=== PATIENT | female | born 1965 | race Caucasian/White ===

== ENCOUNTER 2019-03-19 06:19 | Inpatient (IN) ==
[2019-03-19 07:05] LABS: BASO# 0.03 X1000 (0.0-0.2); BASO% 0.3 % (0.0-0.8); EOS# 0.05 X1000 (0.0-0.7); EOS% 0.5 % (0.0-10.0); HEMOGLOBIN 15.7 g/dL (12.0-16.0); IMM GRAN# 0.05 X1000 (0.0-0.04); IMM GRAN% 0.5 % (0.0-0.5); LYMPH% 16.7 % (20.5-51.1); MCH 28.6 PG (27-31); MCHC 32.7 g/dL (33-37); MCV 87.4 FL (81-99); MONO# 1.13 X1000 (0.11-0.59); MONO% 10.5 % (1.7-9.3); MPV 9.9 FL (7.4-10.4); NEUT# 7.69 X1000 (1.4-6.5); NEUT% 71.5 % (42.2-75.2); PLT 226 X1000 (130-400); RBC 5.49 XMIL (4.2-5.4); RDW 13.5 % (11.5-14.5); WBC 10.75 X1000 (4.8-10.8)
[2019-03-19 07:26] LABS: AGAP 18; ALB/GLOB RATIO 1.6; ALBUMIN 4.7 g/dL (3.5-5.0); ALKALINE PHOSPHATASE 94 U/L (32-104); AMYLASE 37 U/L (20-200); BUN 7 mg/dL (8-22); CALCIUM 9.2 mg/dL (8.8-10.2); CHLORIDE 99 mmol/L (98-107); COSMO 281; CREATININE 0.6 mg/dL (0.5-0.9); ESTIMATED GFR > 60; GLUCOSE 156 mg/dL (70-104); GOT 112 U/L (10-30); GPT 134 U/L (10-36); LIPASE 26 U/L (13-60); SODIUM 140 mmol/L (136-145); TCO2 23 mmol/L (25-35); TOTAL BILIRUBIN 2.15 mg/dL (0.20-1.00); TOTAL PROTEIN 7.7 g/dL (6.3-8.3)
[2019-03-19] MEDS ORDERED: PHENERGAN IM ONE (07:41)
[2019-03-19] MEDS ORDERED: NS 1,000 ML IV ONE (07:41)
--- NOTE | 2019-03-19 07:46 | PROVIDER DOCUMENTATION ---
HPI-Abdominal Pain/GI Problem - General Chief Complaint: Nausea/Vomiting Stated Complaint: n/v Time Seen by Provider: 03/19/19 07:09 Source: patient Allergies/Adverse Reactions: Patient Allergies Allergy/AdvReac Type Severity Reaction Status Date / Time Penicillins Allergy Severe ANAPHYLAXIS Verified 03/19/19 06:49 ondansetron HCl * Allergy Intermediate RASH Verified 03/19/19 06:49 [From Zofran (as hydrochloride)] Home Medications: Home Medication List Medication Instructions Recorded Confirmed Last Taken Type Omeprazole 40 mg PO DAILY 03/19/19 03/19/19 3 Days Ago History ~03/16/19 - History of Present Illness-ABD Nature of Presenting Problems: Presents to the with complaints of nausea, vomiting all weekend. She states that she is having some epigastric pain but denies any fevers or diarrhea. Denies any sick contacts. States that she has had pancretitis about 10 years ago and needed stents placed in GB ducts but has not had any issues since. She states this does not feel like her pancreatitis. She has not tried anything at home. She denies any blood in her vomit, but states it is bilious and clear liquid. Review of Systems - Adult - REVIEW OF SYSTEMS - ADULT Constitutional: reports: see HPI Eyes: reports: no symptoms reported Ears, Nose, Mouth & Throat: reports: no symptoms reported Cardiovascular: reports: no symptoms reported Respiratory: reports: no symptoms reported Gastrointestinal: reports: see HPI, abdominal pain, nausea, vomiting. denies: diarrhea Genitourinary: reports: no symptoms reported Musculoskeletal: reports: no symptoms reported Integumentary: reports: no symptoms reported Neurological: reports: no symptoms reported Psychiatric: reports: no symptoms reported Endocrine: reports: no symptoms reported Hematologic/Lymphatic: reports: no symptoms reported Allergic/Immunologic: reports: no symptoms reported All Other Systems: Reviewed and Negative Past History - Adult - PAST MEDICAL HISTORY-ADULT Review of Records: reports: Old Records Reviewed Major Childhood Illnesses: reports: denies history Cardiovascular: reports: denies history Respiratory: reports: denies history Gastrointestinal: reports: pancreatitis Obstetrical/Gynecological: reports: denies history Genitourinary: reports: denies history Musculoskeletal: reports: other (injury one week ago) Neurological: reports: headaches/migraines Psychiatric: reports: anxiety, depression (over loss of her in May) Endocrine/Immune: reports: denies history Other Conditions: reports: denies history - PRIOR SURGERIES/PROCEDURES Surgical/Procedure History: reports: appendectomy, cholecystectomy, joint replacement - IMMUNIZATION STATUS Childhood Immunizations: See Nurse Assessment Flu Vaccine: See Nurse Assessment - FAMILY HISTORY Family History: reviewed, not pertinent Physical Exam-General - PHYSICAL EXAM-ADULT Initial Vital Signs Reviewed: Yes - CONSTITUTIONAL General Appearance: alert, mild distress (uncomfortable appearing), anxious - HEAD, EARS, NOSE, MOUTH & THROAT HENMT: normocephalic/atraumatic - NECK Neck: supple, normal inspection - RESPIRATORY Respiratory: chest non-tender, lungs clear, normal breath sounds, no respiratory distress, no accessory muscle use - CARDIOVASCULAR Cardiovascular: normal peripheral pulses, regular rate, rhythm, no murmur - GASTROINTESTINAL (ABDOMEN) Abdominal Exam: normal bowel sounds, soft, tenderness (epigastric). negative: distended - MUSCULOSKELETAL Back Exam: normal inspection Extremity: normal range of motion, normal inspection - SKIN Integumentary: normal color, warm/dry - NEUROLOGIC Neurologic: grossly normal - PSYCHIATRIC Psych/Mental Status: normal mood/affect, oriented x 3 Progress - PLAN OF CARE/RESULTS Progress/Plan/Lab Results: Vital Signs - 8 hr 03/19/19 06:30 Temperature 98.7 F Pulse Rate 105 H Respiratory Rate 24 Blood Pressure 149/108 O2 Sat by Pulse Oximetry 99 Laboratory Results - last 24 hr 03/19/19 03/19/19 06:45 06:45 WBC 10.75 RBC 5.49 H Hgb 15.7 Hct 48.0 H MCV 87.4 MCH 28.6 MCHC 32.7 L RDW Std Deviation 13.5 Plt Count 226 MPV 9.9 Immature Gran % (Auto) 0.5 Neut % (Auto) 71.5 Lymph % (Auto) 16.7 L Kershaw % (Auto) 10.5 H Eos % (Auto) 0.5 Baso % (Auto) 0.3 Immature Gran # (Auto) 0.05 H Neut # (Auto) 7.69 H Lymph # (Auto) 1.80 Kershaw # (Auto) 1.13 H Eos # (Auto) 0.05 Baso # (Auto) 0.03 Sodium 140 Potassium 4.0 Chloride 99 Carbon Dioxide 23 L Anion Gap 18 BUN 7 L Creatinine 0.6 Estimated GFR/1.73 m2 > 60 BUN/Creatinine Ratio 12 Glucose 156 H Calculated Osmolality 281 Calcium 9.2 Total Bilirubin 2.15 H AST 112 H ALT 134 H Alkaline Phosphatase 94 Total Protein 7.7 Albumin 4.7 Globulin 3.0 Albumin/Globulin Ratio 1.6 Amylase 37 Lipase 26 Orders Category Date Time Status Saline Loc DIRECTED Care 03/19/19 06:58 Active NPO Diet 03/19/19 06:[address] ABD/PELVIS W/IV CONT ONLY [CT] Stat Exams 03/19/19 07:41 Ordered AMYLASE [CHEM] Stat Lab 03/19/19 06:45 Completed CBC WITH ELECTRONIC DIFF [HEME] Stat Lab 03/19/19 06:45 Completed COMPREHENSIVE METABOLIC PANEL [CHEM] Stat Lab 03/19/19 06:45 Completed LIPASE [CHEM] Stat Lab 03/19/19 06:45 Completed URINALYSIS W/POSS RFLX CULT [URINALYSIS] Stat Lab 03/19/19 06:58 Uncollected URINE DRUG SCREEN Stat Lab 03/19/19 07:41 Uncollected 0.9% Sodium Chloride Inj [Ns] 1,000 ml Med 03/19/19 07:41 Active IV 999 mls/hr Promethazine [Phenergan] Med 03/19/19 07:41 Discontinued 25 mg IM NOW ONE Patient with CT showing likely blocked stone in CBD. Will likely need ERCP. Spoke to RUBEN Ricardo weed control inspector for hospitlaist who accepted patient for admission on behalf of Dr Salas. Further orders to be placed by their team. Result Diagrams: 03/19/19 06:45 03/19/19 06:45 - CT/MRI 1 CT Study: Abdomen (CT ABD/PELVIS W/IV CONT ONLY - 03/19/2019 INDICATION: previous stents in GB, transaminitis, elev tbili COMPARISON: None FINDINGS: Aside from some trace atelectasis in the posterior right costophrenic angle, the lung bases are clear. Heart size is normal with no pericardial effusion. There is severe diffuse fatty change of the liver. There are cholecystectomy clips. There are some small densities in the distal common bile duct suggesting common bile duct stones. The common bile duct measures 10.8 mm in caliber. No intrahepatic biliary dilation. No liver masses. The pancreas and main pancreatic duct appear normal. The spleen, adrenals, and kidneys are normal. No bowel obstruction or inflammation. No constipation. Urinary bladder, uterus, and rectum are normal. There are moderate degenerative changes of the spine. No acute or suspicious bony lesion. IMPRESSION: 1. Severe hepatic steatosis. 2. Mild dilation of the common bile duct. Small stones in the distal common bile duct. There may be some obstruction here, however there is no intrahepatic biliary dilation. This exam was performed using automated exposure control, adjustment of mA or kV according to patient size, and/or use of iterative reconstruction technique Electronically signed by Orestes Nieto 03/19/2019 8:54 AM) - CONSULTS/PCP/HOSPITALIST Notification #1 *Consult/PCP/Hospitalist*: Haleigh Time Discussed: 09:41 Consult Disposition: Admit (accepted to Dr Salas) Departure - Departure Date of Disposition Decision: 03/19/19 Time of Disposition Decision: 09:40 DIAGNOSIS: Intractable nausea and vomiting, Choledocholithiasis Disposition: ADMITTED INPATIENT 09 Certified Medical Emergency: Emergent Condition: Stable Referrals and Follow-Ups: None,PCP [Primary Care Provider] - - Critical Care Note This patient required my direct & personal management of CC.: No Attestation - Physician/ SOBEIDA Attestation Patient care was provided by Advanced Practice Provider:: No The physician spent face to face time with patient:: Yes Advanced Practice Provider documentation review:: Supervising physician onsite and consulted in the evaluation and care of this patient. The physician did have a face to face encounter with the patient.
[2019-03-19 08:29] LABS: URINE SOURCE CLEAN CATCH
[2019-03-19 08:47] LABS: BILIRUBIN URINE SMALL (NEGATIVE); BLOOD URINE TRACE (NEGATIVE); COLOR ORANGE; GLUCOSE URINE TRACE mg/dL (NEGATIVE); KETONE URINE 20 mg/dL (NEGATIVE); LEUKOCYTES URINE SMALL (NEGATIVE); NITRITE URINE NEGATIVE (NEGATIVE); PROTEIN URINE 100 mg/dL (NEGATIVE); SP GRAVITY URINE 1.028; TURBIDITY URINE CLEAR (CLEAR); UR EPITHELIAL CELLS <10 /HPF (<10); URINE BACTERIA NEGATIVE /HPF; URINE RBC <10 /HPF (<10); URINE WBC <10 /HPF (<10); UROBILINOGEN URINE >12 mg/dL (NORMAL)
[2019-03-19 08:55] LABS: UR AMPHETAMINES MT NONE DETECTED (NONE DETECT); UR BARBITUATES MT NONE DETECTED (NONE DETECT); UR BENZODIAZ MT NONE DETECTED (NONE DETECT); UR CANNABIS MEDTOX NONE DETECTED (NONE DETECT); UR COCAINE MT NONE DETECTED (NONE DETECT); UR METHADONE MEDTOX NONE DETECTED (NONE DETECT); UR OPIATES MT NONE DETECTED (NONE DETECT); UR OXYCODONE MEDTOX NONE DETECTED (NONE DETECT); UR PCP MEDTOX NONE DETECTED (NONE DETECT)
--- NOTE | 2019-03-19 08:56 | Diag Imaging Result Doc PS360 ---
CT ABD/PELVIS W/IV CONT ONLY - 03/19/2019 INDICATION: previous stents in GB, transaminitis, elev tbili COMPARISON: None FINDINGS: Aside from some trace atelectasis in the posterior right costophrenic angle, the lung bases are clear. Heart size is normal with no pericardial effusion. There is severe diffuse fatty change of the liver. There are cholecystectomy clips. There are some small densities in the distal common bile duct suggesting common bile duct stones. The common bile duct measures 10.8 mm in caliber. No intrahepatic biliary dilation. No liver masses. The pancreas and main pancreatic duct appear normal. The spleen, adrenals, and kidneys are normal. No bowel obstruction or inflammation. No constipation. Urinary bladder, uterus, and rectum are normal. There are moderate degenerative changes of the spine. No acute or suspicious bony lesion. IMPRESSION: 1. Severe hepatic steatosis. 2. Mild dilation of the common bile duct. Small stones in the distal common bile duct. There may be some obstruction here, however there is no intrahepatic biliary dilation. This exam was performed using automated exposure control, adjustment of mA or kV according to patient size, and/or use of iterative reconstruction technique Electronically signed by Orestes Nieto 03/19/2019 8:54 AM
[2019-03-19 10:12] LABS: INR 0.99; PROTIME 13.2 Seconds (11.0-16.0)
--- NOTE | 2019-03-19 10:36 | HISTORY AND PHYSICAL ---
PRIMARY CARE PHYSICIAN: None. CHIEF COMPLAINT: Nausea, vomiting, and epigastric pain that began over the weekend and progressively worsened. HISTORY OF PRESENTING ILLNESS: This is a 53-year-old, female who presents to [facility] with complaints of epigastric abdominal pain, nausea, and vomiting. States the vomiting was too numerous to count over the weekend and has just progressively worsened. States she has had a history of pancreatitis in the past. Has also had a cholecystectomy and required some gallbladder duct stents about 10 years ago and has not had any problems with that since. Her workup in the emergency room showed a total bilirubin of 2.15, AST of 112, ALT 134. Amylase and lipase were both normal. Urinalysis was negative. Urine drug screen was negative. We did a CT of the abdomen and pelvis that showed severe hepatic steatosis and mild dilation of the common bile duct, small stones in the distal common bile duct, and there may be some obstruction here. However, there is no intrahepatic biliary dilation. She will be admitted for further evaluation and treatment. PAST MEDICAL HISTORY: Pancreatitis, migraines, depression, and psoriasis. PAST SURGICAL HISTORY: Stent placement to her common bile duct after her cholecystectomy approximately 10 years ago, an appendectomy, and a left ankle surgery. FAMILY HISTORY: Reviewed and noncontributory. SOCIAL HISTORY: She currently lives with family. She is a former smoker. Drinks alcohol occasionally and denied any illicit drug use. ALLERGIES: Penicillin and ondansetron. HOME MEDICATIONS: She takes omeprazole 40 mg p.o. daily and that will be held at this time. LABORATORY DATA: Showed a white blood cell count of 10.75, hemoglobin 15.7, hematocrit 48, and platelets 226,000. Sodium 140, potassium 4, chloride 99, CO2 of 23, BUN of 7, creatinine 0.6, glucose 156. Total bilirubin of 2.15, AST of 112, ALT 134, amylase of 37, lipase 26. Cardiac enzymes were negative. Urinalysis was negative. Urine drug screen was negative. CT of the abdomen and pelvis showed severe hepatic steatosis, mild dilation of the common bile duct, small stones in the distal common bile duct and there may be some obstruction here. However, there is no intrahepatic biliary dilation. REVIEW OF SYSTEMS: She denied any fever, chills, blurred vision, dizziness, chest pain, coughing, shortness of breath. She had epigastric abdominal pain, nausea, vomiting that was too numerous to count. Denied any constipation, diarrhea, or burning or hurting with urination. PHYSICAL EXAMINATION: VITAL SIGNS: On arrival, she had a temperature of 98.7 degrees, pulse 105, respirations 24, blood pressure 149/108. HEENT: Normocephalic, atraumatic. Normal ENT inspection. Oropharynx and nares are clear. Eyes: Pupils are equal, round, and reactive to light and accommodation. Extraocular movements are intact. NECK: Normal inspection. Normal range of motion. LUNGS: Clear to auscultation bilaterally with equal lung expansion and chest wall movement. HEART: Regular rate and rhythm. No murmurs, rubs, or gallops. ABDOMEN: Soft. There is some tenderness to palpation to the epigastric area. Bowel sounds were present x4 quadrants. MUSCULOSKELETAL: She had 5/5 strength x4 extremities. NEUROLOGICAL: The cranial nerves 2-12 appear grossly intact. ASSESSMENT: 1. Epigastric abdominal pain. 2. Nausea and vomiting. 3. Choledocholithiasis. 4. Elevated liver function tests. PLAN: She will be admitted to the medical unit. Placed on telemetry. Held n.p.o. We will consult GI. Recheck labs in the a.m. Place on morphine 2 mg IV q.3 hours p.r.n., normal saline at 125 mL an hour, Protonix 40 mg IV q.24, Phenergan 25 mg IV q.6 hours p.r.n. for nausea and vomiting, and further orders after seen by attending and datastage consultant. Dictated by ALVARO Bonds for Zain Salas MD cc: ALVARO Bonds MD
[2019-03-19] MEDS: NS 1,000 ML IV SCH ×2 (10:40→18:38)
[2019-03-19] MEDS: MORPHINE IV PRN ×5 (10:41→22:36)
[2019-03-19] MEDS: PROTONIX IV SCH (10:45)
[2019-03-19] MEDS: PHENERGAN IV PRN ×2 (11:53→19:32)
[2019-03-19] MEDS: SODIUM CHLORIDE 0.9% INJ PRN (11:53)
--- NOTE | 2019-03-19 14:54 | GASTROENTEROLOGY CONSULTATION ---
DATE: 03/19/2019 PATIENT PROFILE: A 53-year-old female REASON FOR CONSULTATION: Common bile duct. HISTORY OF PRESENT ILLNESS: Ms. Lebron is a 53-year-old female who presented to the hospital with complaints of epigastric abdominal pain, nausea, vomiting which she says has been going on over the weekend and it has progressively worsened. She describe her emesis as yellowish green in color. Patient has denied any constipation or diarrhea, and mentioned that she has regular bowel movement. The patient does have a history of pancreatitis in the past and also had a cholecystectomy done. She said that about 10 years back they had put a gallbladder duct stent, and has not had any problems since then. Patient used to live in [place], she moved to [place] [address] of abdomen and pelvis on admission showed severe hepatic steatosis, mild dilation of the common bile duct, small stones in the distal common bile ducts. The patient also has a history of foot reconstruction, which was done in June and history of psoriasis where her skin is very flaky on hands, legs and elbows. Currently, patient has nausea, vomiting and epigastric pain radiating to the back. PAST MEDICAL HISTORY: Pancreatitis, migraine, depression, psoriasis on her legs, elbows and hands, and rheumatoid arthritis. PAST SURGICAL HISTORY: Cholecystectomy, appendectomy, left ankle surgery, foot reconstruction and stent placement for the common bile duct. FAMILY HISTORY: No significant GI malignancies. ALLERGIES: The patient is allergic to penicillin and Zofran. SOCIAL HISTORY: She is a and has 1 kid. Former smoker. Drinks alcohol occasionally, and denies any illicit drugs. HOME MEDICATIONS: Home medications are Prilosec 40 mg daily. REVIEW OF SYSTEMS: As per HPI. Otherwise, 12 point review of system is negative. PHYSICAL EXAMINATION: Vital Signs: Temperature 98.4 degrees, pulse 90, respirations 17, blood pressure 157/77, oxygen saturation 98% on room air. Her weight is 179 pounds. BMI is 29.8 kg/m2. General: She is alert, oriented x3. Answering questions appropriately and in no acute distress. HEENT: Pale conjunctivitis, no icterus. PERRL. Neck: Supple. Lungs: Clear to auscultation in the anterior diaz. Cardiovascular: Regular rate and rhythm. Abdomen: Distended, tender, soft. Active bowel sounds heard in all 4 quadrants. Extremities: No clubbing, no cyanosis. Edema in the left foot in the ankle area. Pedal pulses 2+ present bilaterally. Neurological: Alert, oriented x3. Nonfocal. Cranial nerves 2-12 grossly intact. LABS: WBCs are 10.75, RBC 5.49, hemoglobin 15.7, hematocrit 48.0, platelet count 226. PT 13.2, INR is 0.99. Sodium 140, potassium 4.0, chloride 99, carbon dioxide 23, anion gap 18. BUN 7, creatinine 0.6, glucose 156, calcium 9.2, total bilirubin 2.15. AST 112, ALT 134, alkaline phos 94, total albumin is 4.7, amylase is 37, lipase 26, and plasma lactate is 1.2. The patient's urinalysis has shown 100 of protein, trace of blood and small amount of bilirubin and small amount of leukocytes. The patient's abdomen and pelvis CT has shown severe hepatic steatosis, mild dilation of the common bile duct, small stones in the distal common bile duct. IMPRESSION: Common bile duct stones Nausea and Vomiting Epigastric pain History of Pancreatitis History of psoriasis PLAN: Ms. Lebron is a 53-year-old female with a history of pancreatitis GI has been consulted for her CBD. Dr. Ross will be doing an ERCP tomorrow. Patient is currently on antiemetic Phenergan for her nausea and vomiting. She is receiving IV fluids NS at 125 mL. Patient is on a GI Protonix 40 mg IV daily. Discussed the risks, benefits indication and alternatives of the ERCP procedure, patient verbalizes understanding of the plan of care. This plan was discussed with Dr. Valdez. Thank you for your consult. Please call us for any further questions or concerns. Dictated by ALVARO Montoya for Gideon Valdez MD cc: Gideon Valdez MD I have seen and examined the patient myself and I agree with the above plan of care. I have discussed the above with the patient and all questions were answered. I called and spoke to Dr Ross who will be performing ERCP tomorrow. Please call us with any further questions. [facility] PSYCHIATRIC CENTERShea
[2019-03-19] MEDS: LEVAQUIN 750 MG/D5W 750 MG/150 ML IVPB IV SCH (18:38)
--- NOTE | 2019-03-19 20:17 | HISTORY AND PHYSICAL ---
ADDENDUM: Ms. Lebron was seen this morning. She presented because of abdominal pain. Imaging studies have revealed a hepatic steatosis and mild dilation of the CBD, stone in the distal common bile duct. Ms. Lebron has been evaluated by GI and there is a plan for ERCP with stone removal tomorrow. We are going to prophylactically cover her with antibiotic until after the procedure to prevent any ascending cholangitis. ASSESSMENT: 1. Symptomatic choledocholithiasis. 2. Transaminitis, secondary to stones in the common bile duct. 3. Psoriasis. The patient has been advised to follow up with Dermatology. 4. Previous history of pancreatitis. Please refer to the details of the History and Physical which has been dictated in the chart by the RN NICU, and the plan has been discussed with her. cc: Zain Salas MD
[2019-03-20] MEDS: MORPHINE IV PRN ×7 (01:23→21:38)
[2019-03-20] MEDS: NS 1,000 ML IV SCH ×3 (06:30→18:42)
[2019-03-20 08:31] LABS: BASO# 0.02 X1000 (0.0-0.2); BASO% 0.3 % (0.0-0.8); EOS# 0.21 X1000 (0.0-0.7); EOS% 3.1 % (0.0-10.0); HEMATOCRIT 40.9 % (37.0-47.0); HEMOGLOBIN 12.9 g/dL (12.0-16.0); IMM GRAN# 0.05 X1000 (0.0-0.04); IMM GRAN% 0.7 % (0.0-0.5); LYMPH# 2.14 X1000 (1.2-3.4); MCHC 31.5 g/dL (33-37); MCV 91.9 FL (81-99); MONO# 0.85 X1000 (0.11-0.59); MONO% 12.7 % (1.7-9.3); MPV 9.9 FL (7.4-10.4); NEUT# 3.41 X1000 (1.4-6.5); NEUT% 51.2 % (42.2-75.2); PLT 155 X1000 (130-400); RBC 4.45 XMIL (4.2-5.4); RDW 13.7 % (11.5-14.5); WBC 6.68 X1000 (4.8-10.8)
[2019-03-20 08:51] LABS: AGAP 18; ALB/GLOB RATIO 1.7; ALKALINE PHOSPHATASE 73 U/L (32-104); BUN 6 mg/dL (8-22); CALCIUM 8.1 mg/dL (8.8-10.2); CHLORIDE 104 mmol/L (98-107); COSMO 280; CREATININE 0.5 mg/dL (0.5-0.9); ESTIMATED GFR > 60; GLUCOSE 110 mg/dL (70-104); GOT 72 U/L (10-30); GPT 84 U/L (10-36); POTASSIUM 3.4 mmol/L (3.5-5.1); SODIUM 141 mmol/L (136-145); TCO2 19 mmol/L (25-35); TOTAL BILIRUBIN 1.99 mg/dL (0.20-1.00); TOTAL PROTEIN 6.3 g/dL (6.3-8.3)
[2019-03-20] MEDS: SODIUM CHLORIDE 0.9% INJ SCH (10:49)
[2019-03-20] MEDS: SODIUM CHLORIDE 0.9% INJ PRN ×2 (10:49→17:45)
[2019-03-20] MEDS: PROTONIX IV SCH (10:49)
[2019-03-20] MEDS: PHENERGAN IV PRN ×2 (10:49→17:45)
[2019-03-20] MEDS ORDERED: DIPRIVAN 1% ONE (13:36)
[2019-03-20] MEDS ORDERED: VERSED ONE (13:38)
--- NOTE | 2019-03-20 14:06 | PROGRESS NOTE ---
DATE: 03/20/2019 SUBJECTIVE: She says her nausea is better. She is still uncomfortable in her abdomen. She had presented on 03/19/2019 with nausea, vomiting, and epigastric pain. Apparently, she has had her gallbladder removed 10 years ago, but this was reminiscent of how she felt back then when she had a biliary colic, I believe. A 53-year-old female from [place], presented with the epigastric abdominal pain, nausea, and vomiting. The vomiting was too numerous to count over the weekend. No blood in the emesis, but she did have a nosebleed. She said she was thrown so hard, she had nosebleed. She has a history of pancreatitis in the past about 10 years ago, required a cholecystectomy, and she had some gallbladder duct stents about 10 years ago, not had any problems. Her workup in the emergency room showed a total bilirubin of 2.15, AST was 112, ALT 134. Amylase and lipase were both normal. Urinalysis was normal. Urine drug screen was negative. CT of the abdomen and pelvis showed severe hepatic steatosis and mild dilatation of the common bile duct, small stones in the distal common bile duct, and there may have been some obstruction there. PAST MEDICAL HISTORY: Pancreatitis, migraines, depression, psoriasis. PAST SURGICAL HISTORY: She has had stent placed in her common bile duct, and cholecystectomy about 10 years ago, status post appendectomy and left ankle surgery. OBJECTIVE: General: She does feel better. She is sitting up in a chair. Nausea is much better, but she is still having epigastric pain. Vital Signs: Temperature 98.8 degrees, pulse 85, respirations 14, blood pressure 161/86. HEENT: Pupils are equal and round. Lungs: Clear in all lung diaz. Cardiovascular: Regular rhythm and rate without murmur or S3. Abdomen: Soft. Skin: Warm and dry. LABORATORY DATA: Review of her lab from yesterday, white count was 6680, hematocrit was 40, platelet count was 155,000. Sodium 141, potassium 3.4, chloride 104, BUN 6, creatinine 0.5. Urinalysis was negative, unremarkable, and urine drug screen was negative. ASSESSMENT AND PLAN: 1. Symptomatic choledocholithiasis. Gastroenterology is involved. 2. Transaminitis secondary to some stones in the common bile duct. 3. History of psoriasis. 4. History of pancreatitis in the past. It was gallbladder-related pancreatitis when she had a cholecystectomy 10 years ago. REVIEW OF ORDERS: She is on Levaquin 750 mg IV daily, getting normal saline at 125 mL an hour, Protonix 40 mg IV every 24 hours, getting morphine p.r.n. cc: Reece Tipton MD
--- NOTE | 2019-03-20 14:31 | ENDOSCOPY OPERATIVE NOTE ---
[facility] ENDOSCOPY OPERATIVE NOTE , ERCP PROCEDURE REPORT EXAM DATE: 03/20/2019 PATIENT NAME: Luli Lebron MR #: [id number] BIRTHDATE: 1965 ATTENDING: Iain Ross MD STATUS: inpatient BLUING OVEN TENDER: Janell Ospina and Elliott Florez INDICATIONS: The patient is a 53 yr old female here for an ERCP due to established bile duct stone(s ). PROCEDURE PERFORMED: ERCP with removal of calculus/calculi ERCP with stent placement MEDICATIONS: Per Anesthesia CONSENT: The patient understands the risks and benefits of the procedure and understands that these r isks include, but are not limited to: sedation, allergic reaction, infection, perforation and/or bleeding. Alternative means of evaluation and treatment include, among others: physical exam, x-rays, and/or surgical intervention. The patient elects to proceed with this endoscopic procedure. HISTORY AND PHYSICAL: 03/20/2019 DESCRIPTION OF PROCEDURE: During intra-op preparation period all mechanical and medical equipment was checked for proper function. Hand hygiene and appropriate measures for infection prevention was taken. After the risks, benefits and alternatives of the procedure were thoroughly explained, Informed was verified, confirmed and timeout was successfully executed by the treatment team. With the patient in left semi-prone position, medications were admini stered intravenously.The [id number] ([id number]) was passed from the mouth into the esophagus and further advanc ed from the esophagus into the stomach. From stomach scope was directed to the second portion of the duodenum. M ajor papilla was aligned with the duodenoscope. The scope position was confirmed fluoroscopically. Rest of the finding s/therapeutics are given below. The scope was then completely withdrawn from the patient and the procedure completed. Th e pulse, BP, and O2 saturation were monitored and documented by the physician and the nursing staff throughout the ent janes procedure. The patient was cared for as planned according to standard protocol. The patient was then discharged to [facility] in stable condition and with appropriate post procedure care. ERCP: A nurseryperson film prior to endoscope insertion appeared normal. The Major Papilla was located in t he second portion of the duodenum. There was evidence of prior sphincterotomy. There was bile seen draining from the papilla. Bile duct cannulation was attempted using the sphincterotome with guidewire. Cannulation of the bile duct was performed with ease. Deep cannulation was successfully achieved. The cholangiogram revealed a filling defect in the distal common bile duct. A stone extraction was attempted using a stone extraction balloon. The bile duct was swept several times. A single stone was removed from the bile duct. Sludge was removed from the bile duct. Multi ple stones were removed from the bile duct. Under endoscopic and fluoroscopic guidance, a 10Fr X 5cm plastic stent was placed in the bile duct. ADVERSE EVENT: There were no complications. IMPRESSIONS: Common bile duct stone(s) RECOMMENDATIONS: 1. Start Full liquid diet for 1 Day(s) 2. Repeat liver function test in 1 day(s) 3. Disposition 4. Resume current medications 5. Return to floor when standard parameters are met REPEAT EXAM: Return in 6 weeks for ERCP. Iain Ross MD eSigned: Iain Ross MD 03/20/2019 2:30 PM cc: Gideon Vladez MD PATIENT NAME: Luli Lebron MR#: [id number]
--- NOTE | 2019-03-20 15:22 | Diag Imaging Result Doc PS360 ---
EXAM: ERCP-BILIARY AND PANCREATIC 03/20/2019 HISTORY: biliary obstruction TECHNIQUE: ERCP four images 3.9 minutes, 67.6 mGy. COMMENT: A stent was apparently placed. The distal common bile duct is not distended or well opacified. The possibility of a stricture cannot be excluded. IMPRESSION: The possibility of a stricture in the distal common bile duct cannot be excluded. Electronically signed by Naveen New 03/20/2019 3:20 PM
[2019-03-20] MEDS: LEVAQUIN 750 MG/D5W 750 MG/150 ML IVPB IV SCH (18:33)
[2019-03-21] MEDS: MORPHINE IV PRN ×8 (00:50→23:53)
[2019-03-21] MEDS: PHENERGAN IV PRN ×2 (03:56→20:19)
[2019-03-21] MEDS: NS 1,000 ML IV SCH ×2 (04:03→16:39)
[2019-03-21] MEDS: SODIUM CHLORIDE 0.9% INJ SCH (09:25)
[2019-03-21] MEDS: PROTONIX IV SCH (09:25)
--- NOTE | 2019-03-21 13:35 | GASTROENTEROLOGY PROGRESS NOTE ---
DATE: 03/21/2019 SUBJECTIVE: Ms. Lebron is a 53-year-old, female sitting in the bed. She complained of abdominal pain after she eats. She has denied any nausea or vomiting. The patient mentioned that after having the soup yesterday in the evening, she had severe abdominal cramps. OBJECTIVE: Vital Signs: Temperature 98.1 degrees, pulse is 74, respirations 20, blood pressure 162/88, oxygen saturation 100%. Patient is on room air. Her weight is 179 pounds. BMI is 29.8 kg/m2. General: She is alert, oriented x3, and in no acute distress. HEENT: Pale conjunctivae. No icterus. PERRL. Neck: Supple. Lungs: Clear to auscultation in the anterior diaz. Cardiovascular: Regular rate and rhythm. Abdomen: Distended. Mildly tender. Active bowel sounds heard in all 4 quadrants. Extremities: No clubbing, no cyanosis. Edema in the left foot and the ankle area. The patient does have psoriasis. She has flaky skin on her elbows and on the lower extremities. Pedal pulses 2+ present bilaterally. Neurologic: She is alert, oriented x3. Labs: WBCs are 6.68, RBCs 4.45, hemoglobin 12.9, hematocrit 40.9, platelet count is 155,000. Sodium 141, potassium 3.4, chloride 104, carbon dioxide 19, anion gap 18, BUN 6, creatinine is 0.5, glucose is 110, calcium 8.1. Total bilirubin 1.99, AST of 72, ALT 84, alkaline phosphatase is 73, albumin 4.0. An ERCP x-ray showed the possibility of a stricture in the distal common bile duct which cannot be excluded. IMPRESSION AND PLAN: - Choledocholithiasis - Abnormal LFTs - N/V - History of pancreatitis PLAN: Ms. Lebron is a 53-year-old, female who presents with symptomatic choledocholithiasis s/p ERCP with stone removal and stent placement. The patient is now currently on a full liquid diet. The patient is currently on antiemetic Phenergan for nausea and vomiting. She is receiving IV fluids, normal saline at 125 mL. She is on GI prophylaxis, Protonix 40 mg daily. The patient is also on antibiotic, Levaquin. Patient has been c/o abdominal pain after she eats, We will continue to monitor the patient and follow the plan of care per PCP. This plan was discussed with Dr. Crocker. Please call us for any further questions or concerns. Dictated by ALVARO Montoya for Serge Crocker MD Physician Attestation I have seen and examined the patient. I have discussed and reviewed the note by Mary JOHN and agree with findings and plan as documented. GI following for choledocholithiasis s/p ERCP. She will need repeat ERCP in 6 weeks for stent removal. Advance diet as tolerated. Will follow with you. Trending LFTs. MTDD
--- NOTE | 2019-03-21 15:56 | PROGRESS NOTE ---
DATE: 03/21/2019 SUBJECTIVE: Ms. Lebron is feeling better, but she is still having a good deal of pain and she did have some more nausea so clearly still very uncomfortable. OBJECTIVE: Vital Signs: Remains afebrile, temperature 98.5 degrees, pulse 86, respirations 20, blood pressure 153/89. HEENT: Pupils are equal and round. Lungs are clear in all lung diaz. Cardiovascular: Regular rate without murmur or S3. Input and Output: Urine output is 2400 mL. ASSESSMENT/PLAN: 1. Common bile duct stone, nausea, vomiting, epigastric pain, history of pancreatitis and pancreatic enzymes are not elevated at this time. She had an ERCP done per Dr. Ross and was put on a liquid diet and continued pain management and nausea medication. 2. Psoriasis. Aware. REVIEW OF PRESENT ORDERS: She is on Levaquin 750 mg IV q.24 hours, getting morphine for pain q.3 hours p.r.n. Protonix 40 mg daily and Phenergan 25 mg q.6 hours p.r.n. nausea. LABORATORY DATA: From yesterday reviewed. AST was 78, ALT was 84. Amylase and lipase not elevated. Transaminases are coming down. cc: Reece Tipton MD
[2019-03-21] MEDS: LEVAQUIN 750 MG/D5W 750 MG/150 ML IVPB IV SCH (16:26)
[2019-03-22] MEDS: MORPHINE IV PRN ×6 (03:13→23:45)
[2019-03-22] MEDS: NS 1,000 ML IV SCH ×4 (03:14→20:17)
--- NOTE | 2019-03-22 09:19 | Diag Imaging Result Doc PS360 ---
KUB ABDOMEN - 03/22/2019 INDICATION: Abdominal pain after ERCP COMPARISON: None FINDINGS: There are cholecystectomy clips. There is a common bile duct stent in the right upper quadrant. No bowel obstruction or free air. There are numerous phleboliths in the lower abdomen and pelvis. IMPRESSION: No acute disease or complication. Electronically signed by Orestes Nieto 03/22/2019 9:17 AM
[2019-03-22] MEDS: PROTONIX IV SCH (09:21)
--- NOTE | 2019-03-22 10:06 | PROGRESS NOTE ---
DATE: 03/22/2019 SUBJECTIVE: Ms. Lebron had a pretty good night. This morning, had some full liquids and had more epigastric pain so she is very discouraged. She remains afebrile. OBJECTIVE: Temperature 98.0 degrees, pulse 74, respirations 18, blood pressure 166/76. Pupils are equal and round. Lungs are clear in all lung diaz. Cardiovascular Examination: Regular rhythm and rate without murmur or S3. Abdomen is soft. Skin is warm and dry. ASSESSMENT/PLAN: 1. Common bile duct stones, nausea, vomiting, epigastric pain, history of pancreatitis. No active pancreatitis at this time. Pancreatic enzymes have not been elevated. I will check them again now in the morning. Check liver functions test again. She had an endoscopic retrograde cholangiopancreatography done per Dr. Ross and put on a liquid diet. Did find multiple stones in the common bile duct. 2. Psoriasis. I am going to let her try some Eucerin with cortisone cream to see if she can get some relief. cc: Reece Tipton MD
--- NOTE | 2019-03-22 10:13 | PROGRESS NOTE ---
DATE: 03/22/2019 SUBJECTIVE: She had a pretty good night, and this morning she had a couple bites of her full liquid and started to have epigastric pain again, so she is very discouraged. OBJECTIVE: Vital Signs: Temperature 98.0 degrees, pulse 70, respirations 18, blood pressure 166/74. Eyes: Pupils are equal and round. Lungs: Lungs are clear in all lung diaz. Cardiovascular exam: Regular rhythm and rate without murmurs or S3. cc: Reece Tipton MD
[2019-03-22] MEDS: EUCERIN LOTION TOP SCH ×2 (11:24→22:00)
[2019-03-22] MEDS: MIRALAX PO SCH (11:25)
--- NOTE | 2019-03-22 11:55 | GASTROENTEROLOGY PROGRESS NOTE ---
DATE: 03/22/2019 SUBJECTIVE: Ms. Lebron is a 53-year-old female sitting in the bed, complaining of abdominal pain after she eats. The patient has denied any vomiting, but states that she feels like she is nauseated all the time. OBJECTIVE: Vital Signs: Temperature 98.3 degrees, pulse is 82, respirations 18, blood pressure 156/81, oxygen saturation 100% on room air. Her weight is 179 pounds. BMI is 29.8 kg/m2. General: She is alert, oriented x3, and in no acute distress. HEENT: Pale conjunctivae, no icterus. PERRL. Neck: Supple. Lungs: Clear to auscultation in the anterior diaz. Cardiovascular: Regular rate and rhythm. Abdomen: Mildly distended, mild generalized tenderness. Active bowel sounds heard in all 4 quadrants. Extremities: No clubbing. No cyanosis. Edema in the left foot and the ankle area. The patient does have psoriasis and has got flaky skin on the elbows and in the lower extremities. Pedal pulses 2+ present bilaterally. Neurologic: She is alert, oriented x3. LABS: The patient's hematology is from 03/20. WBC is 6.68, RBC 4.45, hemoglobin 12.9, hematocrit 40.9, platelet count is 155. The chemistries are also from 03/20. Sodium is 141, potassium is 3.4, chloride 104, carbon dioxide 19, anion gap 18. BUN 6, creatinine 0.5, glucose 110, calcium 8.1, total bilirubin 1.99. AST 72, ALT 84, alkaline phosphatase is 73, albumin is 4.0. X-RAYS: Her abdominal x-ray today showed that she has no acute disease or complications. IMPRESSION AND PLAN: 1. Common bile duct stones s/p ERCP 2. Nausea and vomiting. 3. Epigastric pain. 4. History of pancreatitis. 5. History of psoriasis. PLAN:Ms. Lebron is a 53-year-old female with a history of pancreatitis. GI has been following her for CBD. An ERCP was done by Dr. Ross. The patient is now on full liquid diet, but is currently complaining that every time she eats, she is having abdominal pain. We ordered a KUB of the abdomen and it showed that there is no acute disease or complication. The patient is currently on GI prophylaxis, Protonix 40 mg IV daily. She is also receiving antibiotic Levaquin 750 mg. The patient is on a bowel regimen MiraLAX daily. For her nausea and vomiting, she is receiving antiemetic Phenergan. We will continue to monitor the patient, and if she still has abdominal pain we will notify Dr. Ross. This plan was discussed with Dr. Valdez. Please call us for any further questions or concerns. Dictated by ALVARO Montoya for Gideon Valdez MD cc: Gideon Valdez MD I have seen and examined the patient myself and I agree with the above plan of care. I have discussed the above with the patient and all questions were answered. Please call us with any further questions. MTDD
[2019-03-22] MEDS: LEVAQUIN 750 MG/D5W 750 MG/150 ML IVPB IV SCH ×2 (16:09→17:30)
[2019-03-22] MEDS: PHENERGAN IV PRN (20:17)
[2019-03-22] MEDS: ELOCON CREAM TOP SCH (22:00)
[2019-03-23] MEDS: NS 1,000 ML IV SCH ×3 (02:02→17:53)
[2019-03-23] MEDS: MORPHINE IV PRN ×6 (02:44→20:54)
--- NOTE | 2019-03-23 09:20 | PROGRESS NOTE ---
DATE: 03/23/2019 SUBJECTIVE: Ms. Lebron is much better. She does not hurt anymore. She is tolerating her full liquids and she is a lot more encouraged. OBJECTIVE: Vital signs: Temperature 98.0, pulse 70, respirations 16, blood pressure 148/83. HEENT: Pupils are equal and round. Lungs: Clear in all lung diaz. Cardiovascular exam: Regular rhythm and rate without murmur or S3. Abdomen: Soft. Skin: Warm and dry. ASSESSMENT AND PLAN: 1. Common bile duct stone status post endoscopic retrograde cholangiopancreatography, and she is improving. Had some pain yesterday. May be able to go home soon. 2. Nausea and vomiting, which is resolved. 3. Epigastric pain, better. 4. History of pancreatitis. Has had no active inflammation of the pancreas based on her enzymes on this admission. 5. Psoriasis. I started her on some Eucerin cream and Elocon steroid cream and she feels like it is improving. So we will see how she does today and if without pain and wants to go home, maybe can go home. Note that her transaminases are coming down, AST is 72, ALT was 84, that was on . When she presented, AST was 112 and ALT was 134. cc: Reece Tipton MD
[2019-03-23] MEDS: SODIUM CHLORIDE 0.9% INJ SCH (10:30)
[2019-03-23] MEDS: PHENERGAN IV PRN ×2 (10:30→17:25)
[2019-03-23] MEDS: PROTONIX IV SCH (10:30)
[2019-03-23] MEDS: EUCERIN LOTION TOP SCH ×2 (10:31→20:58)
[2019-03-23] MEDS: ELOCON CREAM TOP SCH ×2 (10:31→20:57)
[2019-03-23] MEDS: MIRALAX PO SCH (10:32)
--- NOTE | 2019-03-23 10:49 | GASTROENTEROLOGY PROGRESS NOTE ---
DATE: 03/23/2019 SUBJECTIVE: Ms. Lebron is a 53-year-old female, sitting in bed. She has denied any abdominal pain, nauseav or omiting today. She said she was feeling much better than what she was yesterday. OBJECTIVE: Vital Signs: Temperature 98 degrees, pulse 73, respirations 16, blood pressure 148/83, oxygen saturation 100% on room air. The patient's weight is 179 pounds. BMI is 29.8 kg/m2. General: She is alert, oriented x3, and in no acute distress. HEENT: Pale conjunctivae. No icterus. PERRL. Neck: Supple. Lungs: Clear to auscultation in the anterior diaz. Cardiovascular: Regular rate and rhythm. Abdomen: Mildly distended, nontender. Active bowel sounds heard in all 4 quadrants. Extremities: No clubbing, no cyanosis. Edema in the left foot and the ankle area. The patient does have psoriasis and has got flaky skin on the elbows and on the lower extremities. Pedal pulses 2+ present bilaterally. Neurologic: She is alert, oriented x3. LABORATORY DATA: The patient does not have any new labs. Her labs are from 03/20/2019. WBC 6.68, RBC 4.45, hemoglobin 12.9, hematocrit 40.9, platelet count is 155,000. Her chemistries are from 03/20/2019. Sodium is 141, potassium is 3.4, chloride is 104, carbon dioxide 19, anion gap 18, BUN is 6, creatinine is 0.5, glucose 110, calcium 8.1, total bilirubin 1.99, AST 72, ALT 84, alkaline phosphatase 73, albumin is 4.0. The patient had an abdominal x-ray done yesterday and it showed that she had no acute disease or any complications. IMPRESSION AND PLAN: 1. Common bile duct stones S/p ERCP. 2. Nausea and vomiting. 3. Epigastric pain. 4. History of pancreatitis. 5. History of psoriasis. PLAN: Ms. Lebron is a 53-year-old female. She has a history of pancreatitis. GI has been following her for the CBD stones and she had an ERCP done with Dr. Ross. The patient is currently now on a full liquid diet. She has denied any abdominal pain, nausea, vomiting. The patient does have antiemetic Phenergan for her nausea and vomiting. She is receiving IV fluids, normal saline at 125 mL. She is on GI prophylaxis, Protonix IV daily. The patient is on a bowel regimen, MiraLAX 17 g, and she is also receiving antibiotic, Levaquin. We will continue to monitor the patient and follow the plan of care per PCP. This plan was discussed with Dr. Crocker. Please call us for any further questions or concerns. Dictated by ALVARO Montoya for Serge Crocker MD Physician Attestation I have seen and examined the patient. I have discussed and reviewed the note by Mary JOHN and agree with findings and plan as documented. GI following for choledocholithiasis s/p ERCP. She will need repeat ERCP in 6 weeks for stent removal. Advance diet as tolerated. Will follow with you. Trending LFTs. MTDD
[2019-03-23] MEDS: LEVAQUIN 750 MG/D5W 750 MG/150 ML IVPB IV SCH (17:25)
[2019-03-24] MEDS: MORPHINE IV PRN ×8 (00:06→22:21)
[2019-03-24] MEDS: NS 1,000 ML IV SCH ×3 (01:39→17:55)
[2019-03-24] MEDS: PROTONIX IV SCH (09:29)
[2019-03-24] MEDS: SODIUM CHLORIDE 0.9% INJ SCH (09:29)
[2019-03-24] MEDS: MIRALAX PO SCH (09:30)
[2019-03-24] MEDS: ELOCON CREAM TOP SCH ×2 (09:35→20:05)
[2019-03-24] MEDS: EUCERIN LOTION TOP SCH ×2 (09:36→20:05)
--- NOTE | 2019-03-24 12:46 | PROGRESS NOTE ---
DATE: 03/24/2019 SUBJECTIVE: Ms. Lebron is better. Still has some abdominal pain. We are going to advance her diet to regular diet, see how she does. Hopefully, she can go home soon. OBJECTIVE: Vital signs: Temperature 98.5 degrees, pulse 84, respirations 18, blood pressure 156/88. HEENT: Pupils are equal and round. Lungs: Clear in all lung diaz. Cardiovascular: Regular rhythm and rate without murmur or S3. Input and Output: Urine output is 1900 mL. ASSESSMENT AND PLAN: 1. Common bile duct stone status post ERCP, nausea, vomiting, epigastric pain, all seem to be improving. We will advance her diet. 2. History of pancreatitis but did not have any elevation of pancreatic enzymes this time. 3. History of psoriasis, which is better with this cream. 4. Continue present measures, advance to a regular diet. cc: Reece Tipton MD
[2019-03-24] MEDS: LEVAQUIN 750 MG/D5W 750 MG/150 ML IVPB IV SCH (17:54)
--- NOTE | 2019-03-24 23:04 | GASTROENTEROLOGY PROGRESS NOTE ---
DATE: 03/24/2019 SUBJECTIVE: Patient resting in bed. She is feeling better. She denies any abdominal pain. She denies any nausea or vomiting. She is eating better. She denies any fevers, rigors, or chills. OBJECTIVE: Vital signs: Temperature 97.5 degrees, pulse rate 75, respiratory rate 16, blood pressure 160/90, saturating 100% room air. Body weight of 179 pounds 5 ounces. BMI 29.8 kg. General Appearance: Moderately built, lying in bed, in no acute distress. HEENT: No pallor. No icterus. Pupils equal, react to light. Neck: Supple. Abdomen: Soft, nontender, nondistended. No guarding or rebound. Extremities: No cyanosis, clubbing. Neurologic: She is alert, awake, oriented. LABS: No labs were drawn today. Last labs were drawn on 03/20/2019. We will draw labs tomorrow. Blood culture x2 negative at 48 hours from 03/19/2019. Urine culture showing mixed helder. IMPRESSION AND PLAN: 1. Common bile duct stone status post ERCP with Dr. Ross and the common bile duct stent was placed on admission. 2. Nausea, vomiting, which resolved. 3. Epigastric pain, which resolved. 4. History of pancreatitis, likely secondary to the choledocholithiasis, which resolved. 5. History of chronic psoriasis. Aware. RECOMMENDATIONS: The patient has been advanced to a regular diet, which she is tolerating. She is on IV morphine for pain control. She is having no pain at the moment. She is on antibiotics Levaquin once daily. She is on Protonix once daily for GI prophylaxis. She is on MiraLAX 17 g once daily for constipation. She is on IV Phenergan as needed for nausea, which is resolved. The patient continues to do well. She may be able to go home tomorrow. We will follow up the patient in 2 weeks in the clinic. At that time, we will assess her for possible EGD and colonoscopy. She will need an ERCP with common bile duct stent removal in 4 to 6 weeks, which will be the end of April, which can be done by Dr. Ross or Dr. Ferro. The above plans discussed with the patient, all questions answered. Please call with any further questions. cc: MD Reece Oro MD
[2019-03-25] MEDS: NS 1,000 ML IV SCH (01:45)
[2019-03-25] MEDS: MORPHINE IV PRN ×3 (01:48→09:27)
[2019-03-25 07:31] LABS: BASO# 0.04 X1000 (0.0-0.2); BASO% 0.6 % (0.0-0.8); EOS# 0.54 X1000 (0.0-0.7); EOS% 8.5 % (0.0-10.0); HEMATOCRIT 40.3 % (37.0-47.0); HEMOGLOBIN 12.7 g/dL (12.0-16.0); IMM GRAN% 1.6 % (0.0-0.5); LYMPH# 1.54 X1000 (1.2-3.4); LYMPH% 24.1 % (20.5-51.1); MCH 28.7 PG (27-31); MCHC 31.5 g/dL (33-37); MONO# 0.98 X1000 (0.11-0.59); MONO% 15.4 % (1.7-9.3); MPV 9.9 FL (7.4-10.4); NEUT# 3.18 X1000 (1.4-6.5); NEUT% 49.8 % (42.2-75.2); PLT 173 X1000 (130-400); RBC 4.43 XMIL (4.2-5.4); RDW 13.1 % (11.5-14.5); WBC 6.38 X1000 (4.8-10.8)
--- NOTE | 2019-03-25 07:36 | DISCHARGE SUMMARY ---
ADMISSION DATE: 03/19/2019 DISCHARGE DATE: 03/25/2019 HISTORY: She has no primary care physician. She presented with nausea, vomiting, epigastric pain that began over the weekend, progressively worsened. This is a 53-year-old, white female who presented to [facility] with complaints of epigastric abdominal pain, nausea and vomiting. Her vomiting was too numerous to count over the weekend and it just progressively worsened. She has a history of pancreatitis in the past about 10 years ago. That is when she had a cholecystectomy and she had a gallbladder stent placed. Has not had any problems since. Workup in the emergency room showed a total bilirubin of 2.15, AST was 112, ALT was 134. Amylase and lipase were both normal. Urinalysis was negative. Urine drug screen was negative. We did a CT of the abdomen and pelvis that showed severe hepatic steatosis, mild dilatation of the common bile duct, small stones in the distal common bile duct. There may have been some obstruction there, however, no intrahepatic biliary dilatation, so was admitted to the hospital. PAST MEDICAL HISTORY: Again, history of pancreatitis, history of migraines, history of depression and psoriasis. ADMISSION DIAGNOSIS: 1. Epigastric pain. 2. Nausea and vomiting. 3. Choledocholithiasis with gallstones in the common bile duct and elevated transaminases and bilirubin. HOSPITAL COURSE: Gastroenterology was asked to see, Dr. Valdez. Common bile duct stones, history of pancreatitis and scheduled her for an ERCP. ERCP was done on 03/21/2019. Per Dr. Ross, she was kept on a full liquid diet. I gave her Phenergan for nausea. IV fluids were run at 125 mL an hour. ERCP showed possibility of stricture in the distal common bile duct which could not be excluded. ERCP x-ray, possibility of stricture in the distal common bile duct could not be excluded. She continued to have some nausea, but this slowly diminish. The epigastric pain diminished. she had a stent placement, ERCP. Her insertion appeared normal. We continued her on full liquids and followed her liver function test. Her transaminases came down nicely. Bilirubin came down as well. AST 72, ALT was 84, total bilirubin was 1.9. Dr. Valdez advanced her. She eventually advanced to regular diet which she tolerated well. Diminished pain. Will plan to keep her on Protonix. Give her MiraLAX 17 g once a day and she should be able to go home. Follow up with the patient in 2 weeks and at the GI clinic. The duct and stent removal schedule should be in 4 to 6 weeks. So plan to discharge her home and we will keep her on omeprazole 40 mg daily. I am going to keep her on Levaquin 750 mg a day for 7 more days. I gave her some Elocon cream for psoriasis, which seemed to help and also some Eucerin lotion. She put both of these on twice a day and that seemed to be very effective. We will continue MiraLAX 17 g a day for. I will give her some pain medicine p.r.n., about 20 of [place] 10 p.r.n. pain. cc: Reece Tipton MD MTDD
[2019-03-25 07:51] LABS: AGAP 12; ALB/GLOB RATIO 1.4; ALBUMIN 3.6 g/dL (3.5-5.0); ALKALINE PHOSPHATASE 64 U/L (32-104); BUN 4 mg/dL (8-22); CALCIUM 8.7 mg/dL (8.8-10.2); CHLORIDE 104 mmol/L (98-107); COSMO 280; CREATININE 0.4 mg/dL (0.5-0.9); ESTIMATED GFR > 60; GLUCOSE 131 mg/dL (70-104); GOT 38 U/L (10-30); GPT 42 U/L (10-36); POTASSIUM 3.9 mmol/L (3.5-5.1); SODIUM 141 mmol/L (136-145); TCO2 25 mmol/L (25-35); TOTAL BILIRUBIN 0.72 mg/dL (0.20-1.00); TOTAL PROTEIN 6.1 g/dL (6.3-8.3)
[2019-03-25 08:05] VITALS: BP 168/97
[2019-03-25] MEDS: MIRALAX PO SCH (09:31)
[2019-03-25] MEDS: ELOCON CREAM TOP SCH (09:36)
[2019-03-25] MEDS: EUCERIN LOTION TOP SCH (09:37)
[2019-03-25] MEDS: PROTONIX IV SCH (09:40)
== END 2019-03-25 12:06 | disposition home or self-care (01) | DRG 446 ==
LOC: SUPCPDRO → ED 06:19 → 3N 06:19 → OBSVTOIN 10:24 → SUATTDRO 10:24
PROVIDERS: ATTEND Emergency Medicine
PROC: EN.ERCP (2019-03-20 13:47)